=== PATIENT | male | born 1965 | race Caucasian/White ===

== ENCOUNTER 2020-09-01 23:56 | Inpatient (IN) | payer OTHER ==
[2020-09-02 03:48] LABS: BASOPHIL 0.6 % (0-2); BILIRUBIN NEGATIVE (NEGATIVE); BLOOD NEGATIVE Ery/uL (NEGATIVE); CLARITY CLEAR (CLEAR); COLOR YELLOW (YELLOW); EOSINOPHIL 1.2 % (0-5); GLUCOSE (U) NORMAL (NORMAL); HCT 50.2 % (42.0-52.0); HGB 17.4 g/dl (13.2-18.0); LEUKOCYTES NEGATIVE Leu/uL (NEGATIVE); LYMPHOCYTE 20.3 % (15-48); MCH 32.3 pg (25.0-31.0); MCHC 34.7 g/dL (32.0-36.0); MCV 93.1 fL (78.0-100.0); MONOCYTE 7.9 % (0-12); MPV 9.3 fL (6.0-9.5); NEUTROPHIL 69.7 % (41-80); NITRITE NEGATIVE (NEGATIVE); NRBC 0; PLT 256 K/uL (150-400); PROTEIN NEGATIVE (NEGATIVE); RBC 5.39 M/uL (4.70-6.00); RDW 13.1 % (11.5-14.0); UROBILINOGEN 0.2 mg/dL (0.2-1.0); WBC 14.4 K/uL (4.0-10.5); pH 7.5 (5.0-9.0)
[2020-09-02 04:05] LABS: BILIRUBIN - TOTAL 0.6 mg/dL (0.2-1.0); BUN/CREAT RATIO (CALC) 12.7 RATIO; CREATININE 1.1 mg/dL (0.67-1.17); GLOBULIN (CALCULATION) 3.7 g/dL; TOTAL PROTEIN 7.7 g/dL (6.4-8.2)
[2020-09-02 04:13] LABS: POTASSIUM 3.8 mmol/L (3.5-5.1)
[2020-09-02 07:47] LABS: CORONAVIRUS 2019 SARS-COV-2 NEGATIVE (NEGATIVE); INFLUENZA A NAA NEGATIVE (NEGATIVE)
[2020-09-02] MEDS ORDERED: BACTRIM DS TAB1 EACH PO (09:37)
[2020-09-02] MEDS ORDERED: ZOCOR20 MG PO (09:37)
[2020-09-02] MEDS ORDERED: ZESTRIL5 MG PO (09:38)
[2020-09-02] MEDS ORDERED: TRAZODONE 100M100 MG PO (09:38)
[2020-09-02] MEDS ORDERED: METFORMIN HCL500 MG PO (09:39)
[2020-09-02] MEDS ORDERED: AMOX TR-K CLV1 EAC4 PO (09:47)
[2020-09-02] MEDS ORDERED: TRAMADOL HCL50 MG PO (10:46)
--- NOTE | 2020-09-02 15:31 | NUR ---
PT ALERT & ORIENTED X3, PATENT IV TO RIGHT AC- LR @ [facility]. 130/83, HR 83, O2 SAT 90%, TEMP 98.1
== END 2020-09-02 17:46 | disposition home or self-care (01) | DRG 603 ==
LOC: FER 23:56 → FMS 09-02 06:25
PROVIDERS: Emergency Medicine; Student in an Organized Health Care Education/Training Program; ADMIT Internal Medicine
PROC: 0W9M0ZZ Drainage of Male Perineum, Open Approach (ICD-10-PCS; principal; 2020-09-02 16:00)
DX: L02.215 Cutaneous abscess of perineum (principal); Z20.822 Contact with and (suspected) exposure to COVID-19; R73.03 Prediabetes; F17.210 Nicotine dependence, cigarettes, uncomplicated; E78.5 Hyperlipidemia, unspecified; M54.9 Dorsalgia, unspecified; Z88.5 Allergy status to narcotic agent; Z88.4 Allergy status to anesthetic agent; Z91.041 Radiographic dye allergy status; L03.315 Cellulitis of perineum; I77.811 Abdominal aortic ectasia
CPT/HCPCS: 36415; 72192; 80053; 81003; 85025; 87040; 87070; 87075; 87077; 87205; J1100; J1170; J1885; J2001; J2250; J2405; J2543; J3010; J7120; U0002